=== PATIENT | male | born 1990 | race Caucasian/White ===

== ENCOUNTER 2019-05-26 23:42 | Emergency (ER) | payer OTHER, SELFPAY ==
[2019-05-26 23:43] VITALS: BP 128/82; PULSE 84; RESP 19; TEMP 36.3; O2SAT 96; BMI 27.5
--- NOTE | 2019-05-26 23:48 | RAD_ITS ---
STUDY: X-RAY CHEST REASON FOR EXAM: Male, 28 years old. Unresponsive, ethanol consumption. TECHNIQUE: Single AP portable view of the chest. COMPARISON: None. FINDINGS: The lungs are clear and expanded. There is no demonstrated pleural abnormality. Normal size heart. Normal mediastinum and neeta. Normal visualized pulmonary arteries. Normal visualized aortic arch and descending thoracic aorta. Normal visualized thoracic spine. Normal visualized ribs, clavicles, and shoulders. There is no demonstrated abnormality of the visualized soft tissue structures of the upper abdomen. RAD/Chest 1 View (Portable) IMPRESSION: Normal x-ray examination of the chest. Electronically Signed: Saloni Olivia MD at 0:27 EDT , Service support ,
--- NOTE | 2019-05-27 00:01 | EKG12_ITS ---
Test Reason : UNCONSCIOUS Blood Pressure : / mmHG Vent. Rate : 082 BPM Atrial Rate : 082 BPM P-R Int : 178 ms QRS Dur : 140 ms QT Int : 394 ms P-R-T Axes : 056 035 034 degrees QTc Int : 460 ms Normal sinus rhythm Right bundle branch block Abnormal ECG Confirmed by LAMONT HODGE, PATRICIA ([id number]), editor magazine [employer] ([id number]) on 05/29/2019 11:01:07 AM Referred By: OSCAR Confirmed By:PATRICIA MIGUEL MD
[2019-05-27 00:15] VITALS: BP 120/77; PULSE 84; RESP 20; O2SAT 95
--- NOTE | 2019-05-27 01:36 | ED.VISSUMM ---
- ER Visit Summary Date of Service: 05/27/19 Chief Complaint: [Alcohol intoxication] History of Present Illness: The patient is a 28 M [presents to the emergency department via EMS. 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 Patient apparently had sat down and vomited and put his head down into the vomit. Patient was not responding to his family so EMS was called. Patient not have any falls or injuries. is given history and was with him. Patient vomiting on way to hospital and EMS gave him Zofran. Patient has history of anxiety. states that he drank more than he usually drinks. Patient denies any complaints on arrival.] Physical Examination: [HEENT-PERRLA, EOMI. Cranial nerves II through XII grossly intact. TMs clear. Mucous membranes moist. No adenopathy. Cardiovascular-regular rate and rhythm without murmur or ectopy Lungs-clear to auscultation, chest wall stable without crepitus or subcu emphysema Abdomen-normoactive bowel sounds, soft, nontender, no rebound or rigidity, no peritoneal signs. Extremities-intact ?4, normal range of motion, normal pulses, atraumatic] Test Results: [Chest x-ray obtained to rule out aspiration showed nothing acute. Patient also had an alcohol level that was elevated at 239. EKG obtained on arrival showed a sinus rhythm with a right bundle branch block with a ventricular rate of 82 bpm.] Emergency Department Course and Treatment: [Patient was placed on a awake overnight monitor and will be observed until his alcohol level normalizes and he is able to ambulate and leave the department with family.] Patient reevaluation at 3 AM shows patient to be awake and alert and following commands. Patient ambulated to the bathroom and back without difficulty. Family would like to observe him further in the emergency department until his alcohol normalizes before taking him home. Patient will be observed till 7 AM at which time his alcohol will be under 100. Treatment Plan: [Patient to follow-up with primary care physician as needed.] Disposition: [Discharged home in stable condition.] Impression: [Alcohol intoxication/overdose] This note was generated with [employer] software. It may contain incorrect words, spelling, and punctuation that were not noted in review of the chart prior to signing ED Disposition - Plan for ED Patient: Referrals: [facility] Doctor,Out of [Primary Care Provider] -
[2019-05-27 02:31] VITALS: BP 112/78; PULSE 75; RESP 18; O2SAT 98
--- NOTE | 2019-05-27 02:49 | ED.DEP ---
ED Disposition - Plan for ED Patient: Instructions: Alcohol Overdose, Alcohol Intoxication Referrals: [facility] Doctor,Out of [NON-STAFF] - As Needed
[2019-05-27 05:00] VITALS: BP 109/74; PULSE 74; RESP 19; O2SAT 96
[2019-05-27 06:33] VITALS: BP 112/74; PULSE 80; RESP 21; O2SAT 99
[2019-05-27 07:05] VITALS: BP 127/86; PULSE 78; RESP 21; O2SAT 98
== END 2019-05-27 07:06 | disposition home or self-care (01) ==
PROVIDERS: Emergency Provider Emergency Medicine
DX: T51.91XA Toxic effect of unspecified alcohol, accidental (unintentional), initial encounter (principal); R11.2 Nausea with vomiting, unspecified; F10.129 Alcohol abuse with intoxication, unspecified; Y90.7 Blood alcohol level of 200-239 mg/100 ml; Y92.9 Unspecified place or not applicable; I45.10 Unspecified right bundle-branch block; F41.9 Anxiety disorder, unspecified; Z79.899 Other long term (current) drug therapy
CPT/HCPCS: 71045; 80320; 93005; 99285; G0480; J2405